=== PATIENT | female | born 1985 | race African-American/Black ===

== ENCOUNTER 2017-05-06 11:26 | Emergency (ER) | payer SELFPAY ==
[~2017-05-06] VITALS: Ht 154.9 cm; Wt 63.6 kg
[~2017-05-06 11:26] MED LIST: CARB200T6 PO
[2017-05-06] MEDS ORDERED: LORazepam 1 MG TABLET PO ONE (12:30)
[2017-05-06] MEDS ORDERED: CarBAMazepine 200 MG TABLET PO ONE (13:45)
[2017-05-06 14:00] VITALS: BP 129/77
== END 2017-05-06 14:03 | disposition home or self-care (01) ==
LOC: EMS 11:28
DX: G40.909 Epilepsy, unspecified, not intractable, without status epilepticus (principal); F17.210 Nicotine dependence, cigarettes, uncomplicated
CPT/HCPCS: 99283

== ENCOUNTER 2018-05-06 01:35 | Inpatient (IN) | payer MEDICAID ==
[~2018-05-06] VITALS: Ht 154.9 cm; Wt 85.2 kg
[2018-05-06] MEDS ORDERED: HALOPERIDOL 5 MG TABLET PO PRN (04:00)
[2018-05-06] MEDS ORDERED: ZOLPIDEM TARTRATE 10 MG TABLET PO PRN (04:00)
[2018-05-06] MEDS ORDERED: LORazepam 2 MG TABLET PO PRN (04:00)
[2018-05-06] MEDS ORDERED: ESCI10TA PO (04:32)
[2018-05-06] MEDS ORDERED: LAMO100 PO ×2 (04:32)
[2018-05-06] MEDS ORDERED: HYDR50CA10 PO (04:32)
[2018-05-06 04:36] VITALS: BP 113/60
[2018-05-06 08:11] VITALS: BP 125/77
[2018-05-06] MEDS: NITROFURANTOIN/NITROFURAN MAC 100 MG CAPSULE [MACROBID] PO SCH ×2 (09:09→20:41)
[2018-05-06] MEDS: LamoTRIgine 100 MG TABLET PO SCH ×2 (09:14→20:41)
[2018-05-06] MEDS ORDERED: CloNIDine HCL 0.1 MG TABLET PO PRN (12:45)
[2018-05-06] MEDS ORDERED: GuaiFENesin/D-METHORPHAN [SUGAR-FREE] 200-20MG/10 ML SYRUP UDCUP PO PRN (12:45)
[2018-05-06] MEDS ORDERED: IBUPROFEN 400 MG TABLET PO PRN (12:45)
[2018-05-06] MEDS ORDERED: ALBUTEROL SULFATE HFA 90 MCG/PUFF 8 GM INHALER IH PRN (12:45)
[2018-05-06] MEDS ORDERED: PETROLATUM,WHITE 71 GM JELLY TP PRN (12:45)
[2018-05-06] MEDS ORDERED: NICOTINE 14 MG/24 HOUR PATCH TD PRN (12:45)
[2018-05-06] MEDS ORDERED: ACETAMINOPHEN 325 MG TABLET PO PRN (12:45)
[2018-05-06] MEDS ORDERED: LOPERAMIDE HCL 2 MG CAPSULE PO PRN (12:45)
[2018-05-06] MEDS ORDERED: MAG HYDROX/AL HYDROX/SIMETH ES 30 ML SUSPENSION UDCUP PO PRN (12:45)
[2018-05-06] MEDS ORDERED: MAGNESIUM HYDROXIDE SUSPENSION 30 ML UDCUP PO PRN (12:45)
[2018-05-06] MEDS ORDERED: ONDANSETRON HCL 4 MG TABLET PO PRN (12:45)
[2018-05-06] MEDS ORDERED: DOCUSATE SODIUM 100 MG CAPSULE PO PRN (12:45)
[2018-05-06] MEDS: ARIPiprazole 5 MG TABLET PO SCH (13:45)
[2018-05-06 16:10] VITALS: BP 108/65
[2018-05-06] MEDS ORDERED: MIRTAZAPINE 15 MG TABLET PO SCH (21:00)
[2018-05-07 01:20] VITALS: BP 101/65
[2018-05-07 08:21] VITALS: BP 100/60
[2018-05-07 08:30] LABS: BASOPHILS % (AUTO) 0.3 % (0.0-2.0); EOSINOPHILS % (AUTO) 3.2 % (1.0-6.0); HEMATOCRIT 33.1 % (36-46); HEMOGLOBIN 11.2 g/dL (12.0-16.0); LYMPHOCYTES # (AUTO) 1.7 K/uL (1.0-4.8); LYMPHOCYTES % (AUTO) 36.2 % (22.0-44.0); MEAN CORPUSCULAR HEMOGLOBIN 30.6 pg (26.0-34.0); MEAN CORPUSCULAR VOLUME 90 fL (80-100); MONOCYTES # (AUTO) 0.5 K/uL (0.1-1.0); MONOCYTES % (AUTO) 10.6 % (2.0-9.0); NEUTROPHILS # (AUTO) 2.3 K/uL (1.8-7.7); NEUTROPHILS % (AUTO) 49.7 % (40.0-70.0); PLATELET COUNT (AUTO) 303 K/uL (150-450); RED BLOOD CELL COUNT(AUTO) 3.67 MIL/uL (4.00-5.20); RED CELL DISTRIBUTION WIDTH 14.3 % (11.5-14.5)
[2018-05-07 08:46] LABS: HEMOGLOBIN A1C 4.8 % (4.5-6.2)
[2018-05-07] MEDS: LamoTRIgine 100 MG TABLET PO SCH ×2 (08:51→20:28)
[2018-05-07] MEDS: ARIPiprazole 5 MG TABLET PO SCH (08:52)
[2018-05-07] MEDS: NITROFURANTOIN/NITROFURAN MAC 100 MG CAPSULE [MACROBID] PO SCH ×2 (08:59→20:28)
[2018-05-07 09:24] LABS: ALANINE AMINOTRANSFERASE 17 U/L (12-78); ALBUMIN 3.1 g/dL (3.4-5.0); ALKALINE PHOSPHATASE 51 U/L (46-116); ANION GAP 5 mmol/L (8-16); ASPARTATE AMINOTRANSFERASE 20 U/L (15-37); BILIRUBIN,TOTAL 0.5 mg/dL (0.1-1.0); CALCIUM, TOTAL 8.7 mg/dL (8.8-10.5); CARBON DIOXIDE 29 mmol/L (22-29); CHLORIDE 104 mmol/L (98-107); CHOL/HDL RATIO 2.3 (3.9-5.7); CHOLESTEROL 196 mg/dL (131-200); FREE T4 (FREE THYROXINE) 1.08 ng/dL (0.76-1.46); GLOMERULAR FILTR. RATE CALC > 60 mL/min (>60); GLUCOSE,RANDOM 81 mg/dL (70-110); HDL CHOLESTEROL 84 mg/dL (40-60); LDL CHOL (CALC.) 101 mg/dL (0-130); POTASSIUM 4.2 mmol/L (3.5-5.1); SODIUM SERUM 138 mmol/L (136-145); THYROID STIMULATING HORMONE 0.18 uIU/mL (0.36-3.74); TOTAL PROTEIN, SERUM 6.6 g/dL (6.4-8.2); TRIGLYCERIDES 56 mg/dL (15-150); UREA NITROGEN, BLOOD 10 mg/dL (7-18)
[2018-05-07 16:00] VITALS: BP 105/63
[2018-05-07] MEDS: FERROUS SULFATE 325 MG EC TABLET PO SCH (16:48)
[2018-05-07] MEDS ORDERED: SERTRALINE HCL 50 MG TABLET PO SCH (21:00)
[2018-05-08 01:29] VITALS: BP 107/68
[2018-05-08 08:30] VITALS: BP 99/63
[2018-05-08] MEDS: NITROFURANTOIN/NITROFURAN MAC 100 MG CAPSULE [MACROBID] PO SCH ×2 (09:09→21:25)
[2018-05-08] MEDS: ARIPiprazole 5 MG TABLET PO SCH (09:09)
[2018-05-08] MEDS: LamoTRIgine 100 MG TABLET PO SCH ×2 (09:09→21:25)
[2018-05-08] MEDS: FERROUS SULFATE 325 MG EC TABLET PO SCH ×2 (09:09→17:12)
[2018-05-08 19:34] VITALS: BP 101/60
[2018-05-08] MEDS ORDERED: SERTRALINE HCL 100 MG TABLET PO SCH (21:00)
[2018-05-09 01:46] VITALS: BP 102/63
[2018-05-09 08:56] VITALS: BP 114/60
[2018-05-09] MEDS: NITROFURANTOIN/NITROFURAN MAC 100 MG CAPSULE [MACROBID] PO SCH (09:12)
[2018-05-09] MEDS: LamoTRIgine 100 MG TABLET PO SCH (09:12)
[2018-05-09] MEDS: ARIPiprazole 5 MG TABLET PO SCH (09:12)
[2018-05-09] MEDS: FERROUS SULFATE 325 MG EC TABLET PO SCH (09:12)
[2018-05-09] MEDS ORDERED: ARIP5TAB8 PO (10:19)
[2018-05-09] MEDS ORDERED: FERR-89 PO (10:19)
[2018-05-09] MEDS ORDERED: SERT100T12 PO (10:19)
[2018-05-09] MEDS ORDERED: MACR100 PO (10:31)
== END 2018-05-09 13:10 | disposition home or self-care (01) | DRG 751 ==
LOC: B2S 03:51 → EDSTATUS 04:19
PROVIDERS: ADMIT Psychiatry & Neurology Psychiatry; ATTEND Psychiatry & Neurology Psychiatry
DX: F33.2 Major depressive disorder, recurrent severe without psychotic features (principal); R45.851 Suicidal ideations; G40.909 Epilepsy, unspecified, not intractable, without status epilepticus; D64.9 Anemia, unspecified; F17.200 Nicotine dependence, unspecified, uncomplicated; F19.20 Other psychoactive substance dependence, uncomplicated; F41.9 Anxiety disorder, unspecified; F60.3 Borderline personality disorder; Z59.0 Homelessness; Z81.8 Family history of other mental and behavioral disorders; Z91.5 Personal history of self-harm; Z91.14 Patient's other noncompliance with medication regimen
CPT/HCPCS: 83036; 84439; 84443; 99285

== ENCOUNTER 2018-06-03 22:55 | Inpatient (IN) | payer MEDICAID ==
[~2018-06-03] VITALS: Ht 154.9 cm; Wt 91.0 kg
[~2018-06-03 22:55] MED LIST changes: +ARIP5TAB8 PO; -CARB200T6 PO; +FERR-89 PO; +LAMO100 PO; +MACR100 PO; +SERT100T12 PO
[2018-06-04] MEDS ORDERED: LORazepam 2 MG TABLET PO PRN (01:00)
[2018-06-04] MEDS ORDERED: HALOPERIDOL 5 MG TABLET PO PRN (01:00)
[2018-06-04 01:28] VITALS: BP 105/60
[2018-06-04] MEDS ORDERED: IBUPROFEN 400 MG TABLET PO PRN (07:00)
[2018-06-04] MEDS ORDERED: ACETAMINOPHEN 325 MG TABLET PO PRN (07:00)
[2018-06-04] MEDS ORDERED: NICOTINE 14 MG/24 HOUR PATCH TD PRN (07:00)
[2018-06-04] MEDS ORDERED: MAGNESIUM HYDROXIDE SUSPENSION 30 ML UDCUP PO PRN (07:00)
[2018-06-04] MEDS ORDERED: ONDANSETRON HCL 4 MG TABLET PO PRN (07:00)
[2018-06-04] MEDS ORDERED: LOPERAMIDE HCL 2 MG CAPSULE PO PRN (07:00)
[2018-06-04] MEDS ORDERED: PETROLATUM,WHITE 71 GM JELLY TP PRN (07:00)
[2018-06-04] MEDS ORDERED: ALBUTEROL SULFATE HFA 90 MCG/PUFF 8 GM INHALER IH PRN (07:00)
[2018-06-04] MEDS ORDERED: MAG HYDROX/AL HYDROX/SIMETH ES 30 ML SUSPENSION UDCUP PO PRN (07:00)
[2018-06-04] MEDS ORDERED: CloNIDine HCL 0.1 MG TABLET PO PRN (07:00)
[2018-06-04] MEDS ORDERED: DOCUSATE SODIUM 100 MG CAPSULE PO PRN (07:00)
[2018-06-04] MEDS ORDERED: GuaiFENesin/D-METHORPHAN [SUGAR-FREE] 200-20MG/10 ML SYRUP UDCUP PO PRN (07:00)
[2018-06-04 08:21] VITALS: BP 106/48
[2018-06-04 08:35] LABS: BASOPHILS % (AUTO) 0.6 % (0.0-2.0); HEMATOCRIT 32.9 % (36-46); HEMOGLOBIN 11.1 g/dL (12.0-16.0); LYMPHOCYTES % (AUTO) 42.4 % (22.0-44.0); MEAN CORPUSCULAR HEMOGLOBIN 30.7 pg (26.0-34.0); MEAN CORPUSCULAR HGB CONC 33.8 G/dL (31.0-37.0); MEAN CORPUSCULAR VOLUME 91 fL (80-100); MONOCYTES # (AUTO) 0.4 K/uL (0.1-1.0); MONOCYTES % (AUTO) 9.6 % (2.0-9.0); NEUTROPHILS # (AUTO) 2.1 K/uL (1.8-7.7); NEUTROPHILS % (AUTO) 44.4 % (40.0-70.0); PLATELET COUNT (AUTO) 298 K/uL (150-450); RED BLOOD CELL COUNT(AUTO) 3.62 MIL/uL (4.00-5.20); RED CELL DISTRIBUTION WIDTH 15.2 % (11.5-14.5)
[2018-06-04 08:38] LABS: HEMOGLOBIN A1C 4.9 % (4.5-6.2)
[2018-06-04 08:55] LABS: ALANINE AMINOTRANSFERASE 12 U/L (12-78); ALKALINE PHOSPHATASE 47 U/L (46-116); ANION GAP 5 mmol/L (8-16); ASPARTATE AMINOTRANSFERASE 13 U/L (15-37); BILIRUBIN,TOTAL 0.3 mg/dL (0.1-1.0); CALCIUM, TOTAL 8.4 mg/dL (8.8-10.5); CARBON DIOXIDE 29 mmol/L (22-29); CHLORIDE 99 mmol/L (98-107); CHOL/HDL RATIO 2.3 (3.9-5.7); CHOLESTEROL 190 mg/dL (131-200); CREATININE 0.85 mg/dL (0.60-1.30); FREE T4 (FREE THYROXINE) 0.89 ng/dL (0.76-1.46); GLOMERULAR FILTR. RATE CALC > 60 mL/min (>60); GLUCOSE,RANDOM 93 mg/dL (70-110); HCG,QUANTITATIVE < 1 mIU/mL (0-6); HDL CHOLESTEROL 82 mg/dL (40-60); LDL CHOL (CALC.) 93 mg/dL (0-130); POTASSIUM 4.2 mmol/L (3.5-5.1); SODIUM SERUM 133 mmol/L (136-145); THYROID STIMULATING HORMONE 0.29 uIU/mL (0.36-3.74); TOTAL PROTEIN, SERUM 6.3 g/dL (6.4-8.2); TRIGLYCERIDES 77 mg/dL (15-150); UREA NITROGEN, BLOOD 12 mg/dL (7-18)
[2018-06-04] MEDS ORDERED: LevETIRAcetam 500 MG TABLET PO SCH (09:00)
[2018-06-04 09:41] VITALS: BP 101/63
[2018-06-04 16:00] VITALS: BP 103/62
[2018-06-04] MEDS: SERTRALINE HCL 100 MG TABLET PO SCH (20:19)
[2018-06-04] MEDS: CarBAMazepine 200 MG TABLET PO SCH (20:19)
[2018-06-04] MEDS: ZOLPIDEM TARTRATE 10 MG TABLET PO PRN (20:33)
[2018-06-05 07:20] VITALS: BP 110/68
[2018-06-05 08:41] VITALS: BP 106/64
[2018-06-05] MEDS: ARIPiprazole 5 MG TABLET PO SCH (09:52)
[2018-06-05] MEDS: FERROUS SULFATE 325 MG EC TABLET PO SCH ×3 (11:30→16:59)
[2018-06-05 16:42] VITALS: BP 85/51
[2018-06-05] MEDS: SERTRALINE HCL 100 MG TABLET PO SCH (21:14)
[2018-06-05] MEDS: CarBAMazepine 200 MG TABLET PO SCH (21:14)
[2018-06-05] MEDS: ZOLPIDEM TARTRATE 10 MG TABLET PO PRN (21:26)
[2018-06-06 06:13] VITALS: BP 102/64
[2018-06-06] MEDS: FERROUS SULFATE 325 MG EC TABLET PO SCH ×3 (06:49→16:58)
[2018-06-06 08:00] VITALS: BP 108/65
[2018-06-06] MEDS: ARIPiprazole 5 MG TABLET PO SCH (09:03)
[2018-06-06 16:00] VITALS: BP 100/67
[2018-06-06] MEDS: SERTRALINE HCL 100 MG TABLET PO SCH (20:06)
[2018-06-06] MEDS: CarBAMazepine 200 MG TABLET PO SCH (20:06)
[2018-06-07 06:16] VITALS: BP 104/68
[2018-06-07] MEDS: FERROUS SULFATE 325 MG EC TABLET PO SCH ×2 (06:49→11:30)
[2018-06-07 08:29] VITALS: BP 112/73
[2018-06-07] MEDS: ARIPiprazole 5 MG TABLET PO SCH (09:23)
[2018-06-07] MEDS ORDERED: CARB200T6 PO (11:30)
== END 2018-06-07 13:45 | disposition home or self-care (01) | DRG 751 ==
LOC: B2S 06-04 00:59
PROVIDERS: ADMIT Psychiatry & Neurology Psychiatry; ATTEND Psychiatry & Neurology Psychiatry
DX: F33.2 Major depressive disorder, recurrent severe without psychotic features (principal); E87.1 Hypo-osmolality and hyponatremia; G40.909 Epilepsy, unspecified, not intractable, without status epilepticus; Z91.19 Patient's noncompliance with other medical treatment and regimen; F15.10 Other stimulant abuse, uncomplicated; F41.9 Anxiety disorder, unspecified; E05.90 Thyrotoxicosis, unspecified without thyrotoxic crisis or storm; D64.9 Anemia, unspecified; J44.9 Chronic obstructive pulmonary disease, unspecified; K21.9 Gastro-esophageal reflux disease without esophagitis; Z59.0 Homelessness; Z81.8 Family history of other mental and behavioral disorders; Z91.5 Personal history of self-harm; Z28.21 Immunization not carried out because of patient refusal
CPT/HCPCS: 83036; 84439; 84443; 87081

== ENCOUNTER 2018-07-01 16:24 | Emergency (ER) | payer MEDICAID, OTHER ==
[~2018-07-01] VITALS: Ht 154.9 cm; Wt 81.8 kg
[~2018-07-01 16:24] MED LIST changes: +CARB200T6 PO; -LAMO100 PO; -MACR100 PO
[2018-07-01 17:44] VITALS: BP 129/77
[2018-07-02] MEDS ORDERED: INHALER IH (13:11)
== END 2018-07-01 17:53 | disposition home or self-care (01) ==
LOC: EMS 16:25
DX: Z76.0 Encounter for issue of repeat prescription (principal); J45.909 Unspecified asthma, uncomplicated; F17.210 Nicotine dependence, cigarettes, uncomplicated
CPT/HCPCS: 99406

== ENCOUNTER 2018-07-02 09:30 | Emergency (ER) | payer OTHER ==
[~2018-07-02] VITALS: Ht 154.9 cm; Wt 61.4 kg
[2018-07-02 09:41] VITALS: BP 122/35
[2018-07-02] MEDS ORDERED: ALBUTEROL SULFATE HFA 90 MCG/PUFF 8 GM INHALER IH ONE (10:15)
[2018-07-02] MEDS ORDERED: INHALER IH (13:11)
== END 2018-07-02 09:45 | disposition left against medical advice (07) ==
LOC: EMS 09:32
DX: Z53.21 Procedure and treatment not carried out due to patient leaving prior to being seen by health care provider (principal)

== ENCOUNTER 2018-07-02 13:06 | Emergency (ER) | payer OTHER ==
[~2018-07-02] VITALS: Ht 154.9 cm; Wt 83.6 kg
[2018-07-02] MEDS ORDERED: INHALER IH (13:11)
[2018-07-02] MEDS ORDERED: ALBUTEROL SULFATE HFA 90 MCG/PUFF 8 GM INHALER IH ONE (14:00)
[2018-07-02 14:12] VITALS: BP 116/77
== END 2018-07-02 14:19 | disposition home or self-care (01) ==
LOC: EMS 13:07
DX: J45.909 Unspecified asthma, uncomplicated (principal); Z76.0 Encounter for issue of repeat prescription; F17.210 Nicotine dependence, cigarettes, uncomplicated; Z90.89 Acquired absence of other organs; Z79.899 Other long term (current) drug therapy
CPT/HCPCS: 99406; J3535

== ENCOUNTER 2018-07-10 17:53 | Inpatient (IN) | payer MEDICAID, OTHER ==
[~2018-07-10] VITALS: Ht 154.9 cm; Wt 85.2 kg
[~2018-07-10 17:53] MED LIST changes: +INHALER IH
[2018-07-10 19:38] LABS: BASOPHILS % (AUTO) 0.9 % (0.0-2.0); EOSINOPHILS % (AUTO) 1.9 % (1.0-6.0); HEMATOCRIT 37.8 % (36-46); HEMOGLOBIN 12.7 g/dL (12.0-16.0); LYMPHOCYTES # (AUTO) 1.4 K/uL (1.0-4.8); LYMPHOCYTES % (AUTO) 27.1 % (22.0-44.0); MEAN CORPUSCULAR HGB CONC 33.5 G/dL (31.0-37.0); MEAN CORPUSCULAR VOLUME 93 fL (80-100); MONOCYTES # (AUTO) 0.4 K/uL (0.1-1.0); MONOCYTES % (AUTO) 6.8 % (2.0-9.0); NEUTROPHILS # (AUTO) 3.3 K/uL (1.8-7.7); NEUTROPHILS % (AUTO) 63.3 % (40.0-70.0); PLATELET COUNT (AUTO) 310 K/uL (150-450); RED BLOOD CELL COUNT(AUTO) 4.08 MIL/uL (4.00-5.20)
[2018-07-10 19:55] LABS: ANION GAP 4 mmol/L (8-16); CALCIUM, TOTAL 8.7 mg/dL (8.8-10.5); CARBON DIOXIDE 31 mmol/L (22-29); CHLORIDE 106 mmol/L (98-107); CREATININE 0.78 mg/dL (0.60-1.30); GLOMERULAR FILTR. RATE CALC > 60 mL/min (>60); GLUCOSE,RANDOM 105 mg/dL (70-110); POTASSIUM 3.5 mmol/L (3.5-5.1); SODIUM SERUM 141 mmol/L (136-145); UREA NITROGEN, BLOOD 11 mg/dL (7-18)
[2018-07-10 20:03] LABS: ALANINE AMINOTRANSFERASE 19 U/L (12-78); ALBUMIN 3.3 g/dL (3.4-5.0); ALKALINE PHOSPHATASE 61 U/L (46-116); ASPARTATE AMINOTRANSFERASE 19 U/L (15-37); BILIRUBIN,TOTAL 0.2 mg/dL (0.1-1.0); TOTAL PROTEIN, SERUM 7.5 g/dL (6.4-8.2)
[2018-07-10 20:15] LABS: INFLUENZA TYPE A NEGATIVE FOR TYPE A (NEGATIVE); INFLUENZA TYPE B NEGATIVE FOR TYPE B (NEGATIVE)
[2018-07-10] MEDS ORDERED: HALOPERIDOL 5 MG TABLET PO PRN (20:30)
[2018-07-10] MEDS ORDERED: ZOLPIDEM TARTRATE 10 MG TABLET PO PRN (20:30)
[2018-07-10] MEDS ORDERED: LORazepam 2 MG TABLET PO PRN (20:30)
[2018-07-10 20:58] LABS: AMPHET/METH SCREEN,URINE POSITIVE (NEGATIVE); BARBITURATE SCREEN, URINE NEGATIVE (NEGATIVE); BENZODIAZEPINES SCREEN,URINE NEGATIVE (NEGATIVE); CANNABINOID SCREEN,URINE POSITIVE (NEGATIVE); COCAINE SCREEN,URINE NEGATIVE (NEGATIVE); METHADONE SCREEN, URINE NEGATIVE (NEGATIVE); OPIATE SCREEN,URINE NEGATIVE (NEGATIVE)
[2018-07-10 21:00] LABS: PHENCYCLIDINE SCREEN,URINE NEGATIVE (NEGATIVE)
[2018-07-10 22:31] VITALS: BP 135/87
[2018-07-10] MEDS ORDERED: ACETAMINOPHEN 325 MG TABLET PO PRN (23:00)
[2018-07-10] MEDS ORDERED: MAG HYDROX/AL HYDROX/SIMETH ES 30 ML SUSPENSION UDCUP PO PRN (23:00)
[2018-07-10] MEDS ORDERED: IBUPROFEN 400 MG TABLET PO PRN (23:00)
[2018-07-10] MEDS ORDERED: DOCUSATE SODIUM 100 MG CAPSULE PO PRN (23:00)
[2018-07-10] MEDS ORDERED: GuaiFENesin/D-METHORPHAN [SUGAR-FREE] 200-20MG/10 ML SYRUP UDCUP PO PRN (23:00)
[2018-07-10] MEDS ORDERED: NICOTINE 14 MG/24 HOUR PATCH TD PRN (23:00)
[2018-07-10] MEDS ORDERED: PNEUMOCOCCAL VACCINE POLYVALENT 0.5 ML VIAL [PPSV23] IM ONE (23:00)
[2018-07-10] MEDS ORDERED: PETROLATUM,WHITE 71 GM JELLY TP PRN (23:00)
[2018-07-10] MEDS ORDERED: ALBUTEROL SULFATE HFA 90 MCG/PUFF 8 GM INHALER IH PRN (23:00)
[2018-07-10] MEDS ORDERED: MAGNESIUM HYDROXIDE SUSPENSION 30 ML UDCUP PO PRN (23:00)
[2018-07-10] MEDS ORDERED: ONDANSETRON HCL 4 MG TABLET PO PRN (23:00)
[2018-07-10] MEDS ORDERED: LOPERAMIDE HCL 2 MG CAPSULE PO PRN (23:00)
[2018-07-10] MEDS ORDERED: CloNIDine HCL 0.1 MG TABLET PO PRN (23:00)
[2018-07-11 05:09] VITALS: BP 128/80
[2018-07-11] MEDS: FERROUS SULFATE 325 MG EC TABLET PO SCH ×3 (07:00→17:00)
[2018-07-11 08:21] VITALS: BP 103/65
[2018-07-11] MEDS: SERTRALINE HCL 50 MG TABLET PO SCH (10:03)
[2018-07-11] MEDS: ARIPiprazole 5 MG TABLET PO SCH (10:03)
[2018-07-11 16:00] VITALS: BP 105/60
[2018-07-11 16:02] VITALS: BP 105/60
[2018-07-11] MEDS ORDERED: CarBAMazepine 200 MG TABLET PO SCH (21:00)
[2018-07-12 02:18] VITALS: BP 114/67
[2018-07-12] MEDS: FERROUS SULFATE 325 MG EC TABLET PO SCH ×2 (06:41→16:59)
[2018-07-12] MEDS ORDERED: FERROUS SULFATE 325 MG EC TABLET PO SCH (07:00)
[2018-07-12 07:25] LABS: BASOPHILS % (AUTO) 0.4 % (0.0-2.0); EOSINOPHILS % (AUTO) 1.6 % (1.0-6.0); HEMATOCRIT 34.3 % (36-46); HEMOGLOBIN 11.8 g/dL (12.0-16.0); LYMPHOCYTES # (AUTO) 1.5 K/uL (1.0-4.8); LYMPHOCYTES % (AUTO) 35.1 % (22.0-44.0); MEAN CORPUSCULAR HEMOGLOBIN 32.9 pg (26.0-34.0); MEAN CORPUSCULAR HGB CONC 34.3 G/dL (31.0-37.0); MEAN CORPUSCULAR VOLUME 96 fL (80-100); MONOCYTES # (AUTO) 0.4 K/uL (0.1-1.0); MONOCYTES % (AUTO) 9.7 % (2.0-9.0); NEUTROPHILS # (AUTO) 2.2 K/uL (1.8-7.7); NEUTROPHILS % (AUTO) 53.2 % (40.0-70.0); PLATELET COUNT (AUTO) 276 K/uL (150-450); RED BLOOD CELL COUNT(AUTO) 3.57 MIL/uL (4.00-5.20); RED CELL DISTRIBUTION WIDTH 14.7 % (11.5-14.5)
[2018-07-12 08:01] LABS: HEMOGLOBIN A1C 4.9 % (4.5-6.2)
[2018-07-12 08:08] LABS: ALANINE AMINOTRANSFERASE 15 U/L (12-78); ALBUMIN 2.9 g/dL (3.4-5.0); ALKALINE PHOSPHATASE 51 U/L (46-116); ANION GAP 5 mmol/L (8-16); ASPARTATE AMINOTRANSFERASE 18 U/L (15-37); BILIRUBIN,TOTAL 0.4 mg/dL (0.1-1.0); CALCIUM, TOTAL 8.3 mg/dL (8.8-10.5); CARBON DIOXIDE 29 mmol/L (22-29); CHLORIDE 106 mmol/L (98-107); CHOL/HDL RATIO 2.7 (3.9-5.7); CHOLESTEROL 199 mg/dL (131-200); CREATININE 0.66 mg/dL (0.60-1.30); GLOMERULAR FILTR. RATE CALC > 60 mL/min (>60); GLUCOSE,RANDOM 78 mg/dL (70-110); HDL CHOLESTEROL 74 mg/dL (40-60); LDL CHOL (CALC.) 116 mg/dL (0-130); POTASSIUM 4.2 mmol/L (3.5-5.1); SODIUM SERUM 140 mmol/L (136-145); THYROID STIMULATING HORMONE 0.23 uIU/mL (0.36-3.74); TOTAL PROTEIN, SERUM 6.3 g/dL (6.4-8.2); TRIGLYCERIDES 47 mg/dL (15-150); UREA NITROGEN, BLOOD 11 mg/dL (7-18)
[2018-07-12] MEDS: SERTRALINE HCL 50 MG TABLET PO SCH (08:49)
[2018-07-12] MEDS: ARIPiprazole 5 MG TABLET PO SCH (08:49)
[2018-07-12 09:09] VITALS: BP_SYST 103; BP_SYST 13; BP_DIAS 67
[2018-07-12 16:18] VITALS: BP 111/70
[2018-07-12] MEDS: CarBAMazepine 200 MG TABLET PO SCH (20:25)
[2018-07-13] MEDS: FERROUS SULFATE 325 MG EC TABLET PO SCH ×2 (06:42→16:48)
[2018-07-13 07:09] VITALS: BP 102/72
[2018-07-13 08:21] VITALS: BP 107/71
[2018-07-13] MEDS: ARIPiprazole 5 MG TABLET PO SCH (09:12)
[2018-07-13] MEDS: SERTRALINE HCL 50 MG TABLET PO SCH (09:12)
[2018-07-13 16:09] VITALS: BP 98/52
[2018-07-13] MEDS: DiphenhydrAMINE HCL 25 MG CAPSULE PO PRN (18:13)
[2018-07-13] MEDS: CarBAMazepine 200 MG TABLET PO SCH (20:15)
[2018-07-14] MEDS: FERROUS SULFATE 325 MG EC TABLET PO SCH ×2 (06:46→16:57)
[2018-07-14 07:23] VITALS: BP 112/68
[2018-07-14 08:23] VITALS: BP 103/67
[2018-07-14] MEDS: ARIPiprazole 5 MG TABLET PO SCH (08:27)
[2018-07-14] MEDS: SERTRALINE HCL 50 MG TABLET PO SCH ×2 (08:27→16:44)
[2018-07-14] MEDS: DiphenhydrAMINE HCL 25 MG CAPSULE PO PRN (12:59)
[2018-07-14 16:00] VITALS: BP 93/59
[2018-07-14] MEDS: CarBAMazepine 200 MG TABLET PO SCH (20:07)
[2018-07-15 06:18] VITALS: BP 100/60
[2018-07-15] MEDS: FERROUS SULFATE 325 MG EC TABLET PO SCH ×2 (06:36→16:00)
[2018-07-15 08:31] VITALS: BP 103/69
[2018-07-15] MEDS: ARIPiprazole 5 MG TABLET PO SCH (08:54)
[2018-07-15] MEDS: FOLIC ACID 1 MG TABLET PO SCH (08:54)
[2018-07-15] MEDS: SERTRALINE HCL 50 MG TABLET PO SCH ×2 (08:54→16:00)
[2018-07-15] MEDS: DiphenhydrAMINE HCL 25 MG CAPSULE PO PRN (14:52)
[2018-07-15 16:00] VITALS: BP 109/69
[2018-07-15] MEDS: CarBAMazepine 200 MG TABLET PO SCH (21:13)
[2018-07-16 03:11] VITALS: BP 103/63
[2018-07-16] MEDS: FERROUS SULFATE 325 MG EC TABLET PO SCH ×2 (07:00→17:00)
[2018-07-16 08:29] VITALS: BP 97/53
[2018-07-16] MEDS: ARIPiprazole 5 MG TABLET PO SCH (08:41)
[2018-07-16] MEDS: SERTRALINE HCL 50 MG TABLET PO SCH ×2 (08:41→16:45)
[2018-07-16] MEDS: FOLIC ACID 1 MG TABLET PO SCH (08:41)
[2018-07-16 16:00] VITALS: BP 98/63
[2018-07-16 17:13] VITALS: BP 115/81
[2018-07-16] MEDS: DiphenhydrAMINE HCL 25 MG CAPSULE PO PRN (17:22)
[2018-07-16] MEDS: CarBAMazepine 200 MG TABLET PO SCH (20:42)
[2018-07-17] MEDS: FERROUS SULFATE 325 MG EC TABLET PO SCH (06:34)
[2018-07-17 07:07] VITALS: BP 106/67
[2018-07-17] MEDS ORDERED: SERT50TA12 PO (08:01)
[2018-07-17 08:21] VITALS: BP 112/72
[2018-07-17] MEDS: FOLIC ACID 1 MG TABLET PO SCH (08:52)
[2018-07-17] MEDS: SERTRALINE HCL 50 MG TABLET PO SCH (08:52)
[2018-07-17] MEDS: ARIPiprazole 5 MG TABLET PO SCH (08:52)
== END 2018-07-17 09:30 | disposition home or self-care (01) | DRG 751 ==
LOC: EMS 17:54 → B2S 20:30
PROVIDERS: ADMIT Psychiatry & Neurology Child & Adolescent Psychiatry; ATTEND Psychiatry & Neurology Child & Adolescent Psychiatry
DX: F33.2 Major depressive disorder, recurrent severe without psychotic features (principal); G40.909 Epilepsy, unspecified, not intractable, without status epilepticus; R45.851 Suicidal ideations; D64.9 Anemia, unspecified; D72.819 Decreased white blood cell count, unspecified; F41.9 Anxiety disorder, unspecified; J06.9 Acute upper respiratory infection, unspecified; F17.210 Nicotine dependence, cigarettes, uncomplicated; F12.10 Cannabis abuse, uncomplicated; J45.909 Unspecified asthma, uncomplicated; Z62.810 Personal history of physical and sexual abuse in childhood; Z87.440 Personal history of urinary (tract) infections; Z59.0 Homelessness; Z91.5 Personal history of self-harm; Z28.21 Immunization not carried out because of patient refusal; Z79.899 Other long term (current) drug therapy; Z71.6 Tobacco abuse counseling; Z71.51 Drug abuse counseling and surveillance of drug abuser
CPT/HCPCS: 83036; 84443; 87804; 99406; G0480

== ENCOUNTER 2018-07-24 14:42 | Emergency (ER) | payer MEDICAID, OTHER ==
[~2018-07-24] VITALS: Ht 154.9 cm; Wt 86.4 kg
[~2018-07-24 14:42] MED LIST changes: -FERR-89 PO; -INHALER IH; -SERT100T12 PO; +SERT50TA12 PO
[2018-07-24 17:50] VITALS: BP 128/68
== END 2018-07-24 18:11 | disposition home or self-care (01) ==
LOC: EMS 14:43
DX: R07.9 Chest pain, unspecified (principal); F41.9 Anxiety disorder, unspecified; F17.210 Nicotine dependence, cigarettes, uncomplicated; J45.909 Unspecified asthma, uncomplicated; F32.9 Major depressive disorder, single episode, unspecified; Z79.899 Other long term (current) drug therapy
CPT/HCPCS: 93005; 99406

== ENCOUNTER 2018-10-19 14:57 | Emergency (ER) | payer OTHER ==
[~2018-10-19] VITALS: Ht 160 cm; Wt 90.9 kg
[2018-10-19 15:00] VITALS: BP 146/90
== END 2018-10-19 17:21 | disposition left against medical advice (07) ==
LOC: EMS 14:58
DX: R06.02 Shortness of breath (principal); R05 Cough; R07.9 Chest pain, unspecified; J45.909 Unspecified asthma, uncomplicated; F32.9 Major depressive disorder, single episode, unspecified; F17.210 Nicotine dependence, cigarettes, uncomplicated; F12.90 Cannabis use, unspecified, uncomplicated; Z53.21 Procedure and treatment not carried out due to patient leaving prior to being seen by health care provider

== ENCOUNTER 2020-07-08 20:18 | Emergency (ER) | payer MEDICAID, OTHER ==
[~2020-07-08] VITALS: Ht 154.9 cm; Wt 81.8 kg
[~2020-07-08 20:18] MED LIST changes: -ARIP5TAB8 PO; -SERT50TA12 PO
[2020-07-08 22:30] VITALS: BP 127/75
[2020-07-08] MEDS ORDERED: ACETAMINOPHEN 500 MG TABLET PO ONE (22:30)
[2020-07-08] MEDS ORDERED: KETOROLAC TROMETHAMINE 30 MG/ML VIAL IM ONE (22:30)
[2020-07-08 23:23] LABS: BASOPHILS % (AUTO) 0.4 % (0.0-2.0); EOSINOPHILS % (AUTO) 1.6 % (1.0-6.0); HEMOGLOBIN 11.5 g/dL (12.0-16.0); LYMPHOCYTES # (AUTO) 2.1 K/uL (1.0-4.8); LYMPHOCYTES % (AUTO) 32.6 % (22.0-44.0); MEAN CORPUSCULAR HEMOGLOBIN 31.5 pg (26.0-34.0); MEAN CORPUSCULAR HGB CONC 33.7 G/dL (31.0-37.0); MEAN CORPUSCULAR VOLUME 93 fL (80-100); MONOCYTES # (AUTO) 0.5 K/uL (0.1-1.0); MONOCYTES % (AUTO) 8.6 % (2.0-9.0); NEUTROPHILS # (AUTO) 3.6 K/uL (1.8-7.7); NEUTROPHILS % (AUTO) 56.8 % (40.0-70.0); PLATELET COUNT (AUTO) 296 K/uL (150-450); RED BLOOD CELL COUNT(AUTO) 3.64 MIL/uL (4.00-5.20); RED CELL DISTRIBUTION WIDTH 13.9 % (11.5-14.5)
[2020-07-08 23:35] LABS: PROTHROMBIN TIME 10.9 SEC (9.4-11.6)
[2020-07-08 23:36] LABS: ANION GAP 10 mmol/L (8-16); CALCIUM, TOTAL 8.8 mg/dL (8.8-10.5); CARBON DIOXIDE 25 mmol/L (22-29); CHLORIDE 104 mmol/L (98-107); CREATININE 0.87 mg/dL (0.60-1.30); GLOMERULAR FILTR. RATE CALC > 60 mL/min (>60); GLUCOSE,RANDOM 91 mg/dL (70-110); POTASSIUM 3.1 mmol/L (3.5-5.1); SODIUM SERUM 139 mmol/L (136-145); UREA NITROGEN, BLOOD 11 mg/dL (7-18)
[2020-07-08 23:37] LABS: LACTIC ACID 0.4 mmol/L (0.4-2.0)
[2020-07-08 23:51] LABS: B-TYPE NATRIURETIC PEPTIDE 22 pg/mL (0-100)
[2020-07-08 23:54] LABS: ALANINE AMINOTRANSFERASE 20 U/L (12-78); ALBUMIN 3.3 g/dL (3.4-5.0); ALKALINE PHOSPHATASE 55 U/L (46-116); ASPARTATE AMINOTRANSFERASE 27 U/L (15-37); BILIRUBIN,TOTAL 0.6 mg/dL (0.1-1.0); CREATINE KINASE, TOTAL ONLY 562 U/L (26-192); HCG,QUANTITATIVE 1 mIU/mL (0-6); THYROID STIMULATING HORMONE 0.15 uIU/mL (0.36-3.74); TOTAL PROTEIN, SERUM 7.1 g/dL (6.4-8.2)
[2020-07-09] MEDS ORDERED: POTASSIUM CHLORIDE 20 MEQ ER TABLET PO ONE
== END 2020-07-09 04:22 | disposition left against medical advice (07) ==
LOC: EMS 20:27
DX: E87.6 Hypokalemia (principal); R91.1 Solitary pulmonary nodule; Z20.828 Contact with and (suspected) exposure to other viral communicable diseases; F17.210 Nicotine dependence, cigarettes, uncomplicated; F12.90 Cannabis use, unspecified, uncomplicated; J45.909 Unspecified asthma, uncomplicated; F32.9 Major depressive disorder, single episode, unspecified; Z79.899 Other long term (current) drug therapy
CPT/HCPCS: 36415; 71045; 80053; 82550; 83605; 83735; 83880; 84439; 84443; 84484; 84702; 85025; 85610; 85730; 93005; 96372; 99285; J1885; U0003

== ENCOUNTER 2021-01-11 18:17 | Emergency (ER) | payer MEDICAID ==
[~2021-01-11] VITALS: Ht 154.9 cm; Wt 86.4 kg
[2021-01-11] MEDS ORDERED: AMOX TR/POT CLAV 875 MG/125 MG TABLET PO ONE (19:15)
[2021-01-11] MEDS ORDERED: PERTUSS(ACELL),DIPH,TET VAC/PF 0.5 ML SYRINGE IM. ONE (19:15)
[2021-01-11] MEDS ORDERED: BACITRACIN 0.9 GM PACKET OINTMENT TP ONE (19:15)
[2021-01-11] MEDS ORDERED: RABIES IMMUNE GLOBULIN/PF 300 UNITS/ML 5 ML VIAL IM. ONE (19:15)
[2021-01-11] MEDS ORDERED: ACETAMINOPHEN 500 MG TABLET PO ONE (19:15)
[2021-01-11] MEDS ORDERED: RABIES VACCINE (PCEC)/PF 2.5 UNITS/ML SYRINGE IM. ONE (19:15)
[2021-01-11 20:03] VITALS: BP 116/78
== END 2021-01-11 20:07 | disposition home or self-care (01) ==
LOC: EMS 18:17
DX: S81.851A Open bite, right lower leg, initial encounter (principal); W54.0XXA Bitten by dog, initial encounter; Y93.89 Activity, other specified; Y92.89 Other specified places as the place of occurrence of the external cause; Y99.8 Other external cause status
CPT/HCPCS: 90375; 90471; 90472; 90675; 90715; 96372; 99284

== ENCOUNTER 2021-01-15 16:15 | Emergency (ER) | payer MEDICAID ==
[~2021-01-15] VITALS: Ht 152.4 cm; Wt 84.1 kg
[2021-01-15] MEDS ORDERED: RABIES VACCINE (PCEC)/PF 2.5 UNITS/ML SYRINGE IM. ONE (16:45)
[2021-01-15 17:24] VITALS: BP 125/81
== END 2021-01-15 17:25 | disposition home or self-care (01) ==
LOC: EMS 16:15
DX: S81.851D Open bite, right lower leg, subsequent encounter (principal); Z23 Encounter for immunization; F12.90 Cannabis use, unspecified, uncomplicated; F17.210 Nicotine dependence, cigarettes, uncomplicated; F32.9 Major depressive disorder, single episode, unspecified; J45.909 Unspecified asthma, uncomplicated; Z79.899 Other long term (current) drug therapy; W54.0XXD Bitten by dog, subsequent encounter
CPT/HCPCS: 90471; 90675; 99281